=== PATIENT | female | born 1950 ===

== ENCOUNTER 2018-08-15 14:16 | Emergency (ER) | payer MEDICARE ==
[2018-08-15 14:43] VITALS: TEMP 97
--- NOTE | 2018-08-15 15:25 | ED PDOC ---
Lower Extremity Pain/Injury Time Seen by Provider: 08/15/18 15:12 Chief Complaint (Nursing): Lower Extremity Problem/Injury Chief Complaint (Provider): Lower Extremity Problem/Injury History Per: Patient History/Exam Limitations: no limitations Onset/Duration Of Symptoms: Days (x15) Current Symptoms Are (Timing): Still Present Additional Complaint(s): 68 y/o female presents to the ED for evaluation of a foot injury, onset 15 days ago. Patient reports of having twisted her foot, causing swelling. Patient notes of applying ice to the affected area and taking cataflam once daily. Patient reports swelling returns with walking. Patient states she was advised to come to the ER by her daughter to rule out a fracture thus prompting today's visit. PMD: none provided Past Medical History Reviewed: Historical Data, Nursing Documentation, Vital Signs Vital Signs: Last Vital Signs Temp 97 F L 08/15/18 14:42 Pulse 86 08/15/18 14:42 Resp 16 08/15/18 14:42 BP 173/95 H 08/15/18 14:42 Pulse Ox 99 08/15/18 14:42 - Medical History PMH: No Chronic Diseases - Surgical History Surgical History: No Surg Hx - Family History Family History: States: Unknown Family Hx - Home Medications Home Medications: Ambulatory Orders Medication Instructions Recorded Naproxen 375 mg PO Q8 PRN #21 tablet 08/15/18 - Allergies Allergies/Adverse Reactions: Allergies Allergy/AdvReac Type Severity Reaction Status Date / Time No Known Allergies Allergy Verified 08/15/18 14:40 Review of Systems ROS Statement: Except As Marked, All Systems Reviewed And Found Negative Musculoskeletal: Positive for: Foot Pain (left foot pain) Physical Exam - Reviewed Nursing Documentation Reviewed: Yes Vital Signs Reviewed: Yes - Physical Exam Appears: Positive for: No Acute Distress Extremity: Positive for: Tenderness (minimal tenderness of the foot. ), Swelling (moderate swelling to the left lateral malleolous) - ECG O2 Sat by Pulse Oximetry: 99 (RA) Pulse Ox Interpretation: Normal - Progress ED Course And Treament: xry of left ankle: fx of distal fibula healing d/w podiatry seen by resident and placed in CAM boot. Medical Decision Making Medical Decision Making: Time: 1512 Plan: -- Ankle Left 3 Views XR -- Foot Left 3 Views XR Scribe Attestation: Documented by Terra Garibay, acting as a scribe Yulissa Smith PA-C. Provider Scribe Attestation: All medical record entries made by the Scribe were at my direction and personally dictated by me. I have reviewed the chart and agree that the record accurately reflects my personal performance of the history, physical exam, medical decision making, and the department course for this patient. I have also personally directed, reviewed, and agree with the discharge instructions and disposition. Disposition - Clinical Impression Clinical Impression: Ankle fracture - Patient ED Disposition Is Patient to be Admitted: No - Disposition Referrals: Podiatry Clinic [Outside] Disposition: Routine/Home Disposition Time: 16:33 Condition: FAIR Prescriptions: Naproxen 375 mg PO Q8 PRN #21 tablet PRN Reason: Pain, Moderate (4-7) Instructions: Ankle Fracture (DC) Print Language: GREENLANDIC
--- NOTE | 2018-08-15 16:37 | CP.PCM.CON ---
History of Present Illness - History of Present Illness History of Present Illness: Podiatry consult note for Dr. Pickard, 68 y/o female presents to the ED for evaluation of a left foot injury, onset 15 days ago. Patient reports of having twisted her foot, causing swelling. Patient notes of applying ice to the affected area. Patient reports swelling returns with walking. Patient states she was advised to come to the ER by her daughter to rule out a fracture Review of Systems - Review of Systems All systems: reviewed and no additional remarkable complaints except Review of Systems: As per HPI Past Patient History - Past Social History Smoking Status: Never Smoked - PSYCHIATRIC Hx Substance Use: No Meds Home Medications: Home Medication List Medication Instructions Recorded Confirmed Type Naproxen 375 mg PO Q8 PRN #21 tablet 08/15/18 Rx Allergies/Adverse Reactions: Allergies Allergy/AdvReac Type Severity Reaction Status Date / Time No Known Allergies Allergy Verified 08/15/18 14:40 Physical Exam - Constitutional Appears: Well, Non-toxic, No Acute Distress - Head Exam Head Exam: ATRAUMATIC, NORMOCEPHALIC - Extremities Exam Additional comments: Left Lower Extremity Exam VASC: Dp and PT 2/4, CFT less thn 3 seconds, TG within normal limits, moderate swelling to the left lateral malleolous NEURO: grossly intact DERM: no wounds, no lesions, no erythema, no ecchymosis, no signs of infection, moderate swelling to lateral malleolar region ORTHO: Tenderness on palpation and with inversion, no pain with ankle range of motion, MSK 5/5 - Neurological Exam Neurological exam: Alert, Oriented x3 - Psychiatric Exam Psychiatric exam: Normal Affect, Normal Mood Results - Vital Signs Recent Vital Signs: Last Vital Signs Temp 97 F L 08/15/18 14:42 Pulse 86 08/15/18 14:42 Resp 16 08/15/18 14:42 BP 173/95 H 08/15/18 14:42 Pulse Ox 99 08/15/18 16:34 Assessment & Plan - Assessment and Plan (Free Text) Assessment: 68 y/o female seen and evaluated for left ankle pain Plan: Patient seen and evaluated Plan discussed with Dr. Neeraj HURD, afebrile Foot and Ankle X-rays: non-displaced fibular fracture, unicortical, likely several days old Patient explained likely etiology of pain Patient placed in a [place] compression, to remain NWB with use of crutches Patient taught how to use crutches Patient to ice/elevate extremity Patient will follow up within 1 week All patient questions answered to satisfaction Thank you for the consult - Date & Time Date: 08/16/18 Time: 10:24
[2018-08-15 16:41] VITALS: BP 145/85; PULSE 87; RESP 20; O2SAT 100
--- NOTE | 2018-08-16 09:55 | RAD ---
Date of service: 08/15/2018 PROCEDURE: Left Ankle Radiographs. HISTORY: ANKLE INJURY COMPARISON: None available. FINDINGS: BONES: Nondisplaced fracture distal left fibula. The finding is marked on the study for review. JOINTS: Normal. No osteoarthritis. Ankle mortise maintained. Talar dome intact SOFT TISSUES: Soft tissue swelling attests to the acuity of the fracture. OTHER FINDINGS: None. IMPRESSION: Nondisplaced distal left fibular fracture. The finding is marked on the study.
--- NOTE | 2018-08-16 13:11 | RAD ---
Date of service: 08/15/2018 PROCEDURE: Left Foot Radiographs. HISTORY: injury COMPARISON: None. FINDINGS: BONES: Small Achilles tendon insertion spur. No fracture. JOINTS: Normal. SOFT TISSUES: Normal. OTHER FINDINGS: None. IMPRESSION: No significant or acute findings to account for/ related to the clinical presentation. Additional benign and/or incidental findings described above.
== END 2018-08-15 16:41 | disposition home or self-care (01) ==
LOC: H.ER 14:16
DX: Z47.89 Encounter for other orthopedic aftercare (principal)

== ENCOUNTER 2018-10-07 18:43 | Emergency (ER) | payer MEDICARE ==
[2018-10-07 18:52] VITALS: RESP 18; O2SAT 100
[2018-10-07] MEDS ORDERED: Tetanus/Diphtheria Toxoids 0.5 ml Syringe IM ONE ×2 (19:26→20:00)
[2018-10-07] MEDS ORDERED: Povidone Iodine Topical 10% Sol TOP STA (19:26)
[2018-10-07] MEDS ORDERED: Lidocaine/Epi 1% 1:100000 20 ML IJ STA (19:26)
[2018-10-07] MEDS ORDERED: Lidocaine 1% w Epi 1:100,000 Inj ONE (19:35)
--- NOTE | 2018-10-07 21:40 | ED PDOC ---
HPI: Trauma/Fall - HPI Time Seen by Provider: 10/07/18 18:58 Chief Complaint (Nursing): Abnormal Skin Integrity Chief Complaint (Provider): fall with facial trauma History Per: Patient, Family (daughter) History/Exam Limitations: no limitations Additional Complaint(s): 68 y/o with hx of HTN who presents with facial trauma after fall down stairs this evening. Pt was walking down stairs of her daughter's apartment when she lost her footing and fell down stairs striking her face against concrete steps. Denies LOC, dizziness, N/V, visual blurriness. Does admit to [place] and pain on her forehead. She is not up to date on her tetanus vaccine. She has not taken any pain meds and does not take any anticoagulants. Past Medical History Reviewed: Historical Data, Nursing Documentation Vital Signs: Last Vital Signs Temp 98.8 F 10/07/18 18:48 Pulse 89 10/07/18 18:48 Resp 18 10/07/18 18:48 BP 192/97 H 10/07/18 18:48 Pulse Ox 100 10/07/18 18:48 - Medical History PMH: HTN, Hypothyroidism, Osteoporosis - Family History Family History: States: Unknown Family Hx - Home Medications Home Medications: Ambulatory Orders Medication Instructions Recorded Naproxen 375 mg PO Q8 PRN #21 tablet 08/15/18 - Allergies Allergies/Adverse Reactions: Allergies Allergy/AdvReac Type Severity Reaction Status Date / Time No Known Allergies Allergy Verified 08/15/18 14:40 Review of Systems Neurological: Positive for: Headache. Negative for: Weakness, Incoordination, Confusion, Altered Mental Status Physical Exam - Reviewed Nursing Documentation Reviewed: Yes Vital Signs Reviewed: Yes - Physical Exam Head Exam: Positive for: ATRAUMATIC Skin: Negative for: Normal Color (+ hematoma on forehead with associated excor iation and minimal bleeding. + 2 cm irregular laceration to bridge of nose (stellate) with mild bleeding. ) Eye Exam: Positive for: EOMI, PERRL, Periorbital swelling (medial Right eye swelling with some ecchymosis. ) ENT: Positive for: Other (approximately 1cm laceration on upper lip partially involving michelle border. Approx 0.5cm laceration on Right lower lip w/o michelle border involement. Punctate lesion on oral mucosa of lower lip. No loose teeth.) Neck: Positive for: Normal, Painless ROM, Supple Neurological/Psych: Positive for: Awake, Alert, Symmetric/Intact Strength (equal B/L), Oriented. Negative for: Lethargic, Motor/Sensory Deficits, Facial Droop - ECG O2 Sat by Pulse Oximetry: 100 Medical Decision Making Medical Decision Making: Tetanus vaccine Toradol 30mg IM x [address] w/o contrast laceration repair (see procedure note) Pt endorsed to [facility] Lemons pending Head and maxillofacial CT and disposition. Procedures - Laceration/Wound Repair Face Wound Length (cm): 1.5 (nasal bridge, 1cm upper lip, 0.5cm lower lip) Wound's Depth, Shape: superficial Wound Explored: no foreign body removed Irrigated w/ Saline (ccs): 150 Betadine Prep?: Yes Anesthesia: Lidocaine w/ Epi Volume Anesthetic (ccs): 4 Wound Debrided: minimal Wound Repaired With: Sutures Suture Size/Type: 6:0, proline Number of Sutures: 5 (2 non-absorbable to nasal bridge, 2 absorbable chromic gut to upper lip and 1 suture chromic gut absorbable to lower lip) Layer Closure?: No Wound Complexity: Simple Sterile Dressing Applied?: Yes Disposition - Clinical Impression Clinical Impression: Facial trauma, Lip laceration - Patient ED Disposition Is Patient to be Admitted: Transfer of Care ([facility] Lemons) - Disposition Disposition: Transfer of Care Disposition Time: 21:30 Condition: FAIR Forms: [facility] (Bulgarian)
--- NOTE | 2018-10-07 23:05 | ED PDOC ---
- ECG O2 Sat by Pulse Oximetry: 100 - Progress ED Course And Treament: Signed out to me pending CT report. 2300 CT head: no ICH as per [facility] report CT maxillofacial: no fx as per [facility] report Patient and family informed of results. Pt. offers no complaints. Gait steady, unassisted. Wound care instructions provided along with f/u instructions. Disposition - Clinical Impression Clinical Impression: Lip laceration, Head injury, Facial trauma - POA Present On Arrival: None - Disposition Disposition: Routine/Home Disposition Time: 23:04 Condition: STABLE Additional Instructions: SUTURE REMOVAL IN 7 DAYS RETURN TO ED IMMEDIATELY IF SYMPTOMS WORSEN ELYSSA GUTIERRES, thank you for letting us take care of you today. Your provider was Sugey Alvares MD and you were treated for FALL:FACE INJURY. The emergency medical care you received today was directed at your acute s ymptoms. If you were prescribed any medication, please fill it and take as directed. It may take several days for your symptoms to resolve. Return to the Emergency Department if your symptoms worsen, do not improve, or if you have any other problems. Please contact your doctor or call one of the physicians/clinics you have been referred to that are listed on the Patient Visit Information form that is included in your discharge packet. Bring any paperwork you were given at discharge with you along with any medications you are taking to your follow up visit. Our treatment cannot replace ongoing medical care by a primary care provider outside of the emergency department. Thank you for allowing the [facility] team to be part of your care today. If you had an X-Ray or CT scan: A Radiologist will review the ED reading if any change in treatment is needed we will contact you. If you had a blood, urine, or wound culture: It will take several days for the results, if any change in treatment is needed we will contact you. If you had an STI test: It will take 48 hours for the results. Please call after 1 week if you have not heard back. Instructions: Wound Care (DC), Closed Head Injury (DC), Laceration Repair With Stitches (DC) Forms: Location (Irish)
[2018-10-07 23:42] VITALS: BP 174/76; PULSE 83; TEMP 98.2
--- NOTE | 2018-10-08 11:16 | CT ---
Date of service: 10/07/2018 PROCEDURE: CT HEAD WITHOUT CONTRAST. HISTORY: fall with head trauma COMPARISON: None available. TECHNIQUE: Axial computed tomography images were obtained through the head/brain without intravenous contrast. Radiation dose: Total exam DLP = 1564.64 mGy-cm. This CT exam was performed using one or more of the following dose reduction techniques: Automated exposure control, adjustment of the mA and/or kV according to patient size, and/or use of iterative reconstruction technique. FINDINGS: HEMORRHAGE: No intracranial hemorrhage. BRAIN: No mass effect or edema. No significant cortical atrophy. No cortical effacement. VENTRICLES: Unremarkable. No hydrocephalus. CALVARIUM: No fracture is identified. Moderate sized area of frontal scalp and fronto nasal hematoma is noted. PARANASAL SINUSES: Please see CT facial bone exam of same day MASTOID AIR CELLS: Please see CT facial bone exam of same day OTHER FINDINGS: None. IMPRESSION: No evidence of intracranial hemorrhage. Frontal scalp hematoma. No appreciable fracture.
--- NOTE | 2018-10-08 11:18 | CT ---
Date of service: 10/07/2018 PROCEDURE: CT MAXILLOFACIAL BONES WITHOUT CONTRAST HISTORY: fall with facial trauma COMPARISON: None available. TECHNIQUE: Contiguous axial CT images of the maxillofacial bones were obtained. Coronal and sagittal reformats were generated. Radiation dose: Total exam DLP = 0.0 mGy-cm. This CT exam was performed using one or more of the following dose reduction techniques: Automated exposure control, adjustment of the mA and/or kV according to patient size, and/or use of iterative reconstruction technique. FINDINGS: NASAL BONES: Unremarkable. ORBITS: Unremarkable. There is evidence of moderate soft tissue swelling overlying the frontal bone and frontal nasal region. PARANASAL SINUSES/ MASTOIDS: Clear. MAXILLA: Unremarkable. MANDIBLE/ TEMPOROMANDIBULAR JOINTS: Unremarkable. SKULL BASE: Unremarkable. TEMPORAL BONES: Mastoid air cells are under developed. Middle ear cavities are unremarkable. OTHER FINDINGS: Degenerative disc disease is seen in the cervical spine. IMPRESSION: No appreciable fracture. No evidence of sinusitis. Moderate soft tissue swelling.
== END 2018-10-07 23:30 | disposition home or self-care (01) ==
LOC: H.ER 18:43
DX: S09.93XA Unspecified injury of face, initial encounter (principal); W10.9XXA Fall (on) (from) unspecified stairs and steps, initial encounter; I10 Essential (primary) hypertension; S01.511A Laceration without foreign body of lip, initial encounter; S00.03XA Contusion of scalp, initial encounter; M81.0 Age-related osteoporosis without current pathological fracture; Z23 Encounter for immunization
CPT/HCPCS: 12011; 70450; 70486; 90471; 90714; 96372; 99283; J1885

== ENCOUNTER 2018-11-03 08:26 | Emergency (ER) | payer MEDICARE ==
[2018-11-03 08:33] VITALS: BMI 28.3
[2018-11-03 08:35] VITALS: RESP 16; O2SAT 100
--- NOTE | 2018-11-03 09:32 | ED PDOC ---
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 Patient states she sustained a head injury status post fall then placed with multiple stitches on 10/07/18 in ED. She reports pain and swelling improved but has not been able to return sooner to remove stitches due to transportation issues. Patient complains of itchiness to the the stitches area but denies physical pain, visual changes, numbness, tingling, fever, or chills. Past Medical History Reviewed: Historical Data, Nursing Documentation, Vital Signs Vital Signs: Last Vital Signs Temp 98.3 F 11/03/18 08:33 Pulse 79 11/03/18 08:33 Resp 16 11/03/18 08:33 BP 169/80 H 11/03/18 08:33 Pulse Ox 100 11/03/18 08:33 Primary Care Provider: FAMILY PROVIDER,NO - Medical History PMH: HTN, Hypothyroidism, Osteoporosis - Family History Family History: States: Unknown Family Hx - Home Medications Home Medications: Ambulatory Orders Medication Instructions Recorded Naproxen 375 mg PO Q8 PRN #21 tablet 08/15/18 - Allergies Allergies/Adverse Reactions: Allergies Allergy/AdvReac Type Severity Reaction Status Date / Time No Known Allergies Allergy Verified 08/15/18 14:40 Review of Systems ROS Statement: Except As Marked, All Systems Reviewed And Found Negative Constitutional: Negative for: Fever, Chills Eyes: Negative for: Pain, Vision Change ENT: Positive for: Other (2 stitches on top of nasal bridge with itchiness). Negative for: Nose Pain Neurological: Negative for: Numbness (or tingling) Physical Exam - Reviewed Nursing Documentation Reviewed: Yes Vital Signs Reviewed: Yes - Physical Exam Appears: Positive for: Non-toxic, No Acute Distress Head Exam: Negative for: NORMAL INSPECTION Skin: Positive for: Normal Color Eye Exam: Positive for: Normal appearance, EOMI, PERRL. Negative for: Periorbital swelling, Periorbital tenderness ENT: Positive for: Other ([address] on top of nasal bridge without erythema or discharge). Negative for: Sinus Pain/Drainage (frontal or nasal bridge) Neck: Positive for: Normal Cardiovascular/Chest: Positive for: Regular Rate, Rhythm Respiratory: Positive for: Normal Breath Sounds. Negative for: Respiratory Distress Neurological/Psych: Positive for: Awake, Alert, Normal Tone, Oriented, reading professor II- XII (grossly intact). Negative for: Motor/Sensory Deficits - ECG O2 Sat by Pulse Oximetry: 100 (RA) Pulse Ox Interpretation: Normal - Progress ED Course And Treament: 2 stitches removed with no incident. 1124: Stable. AAOx3. Tolerated well. Fu with pcp. No pain. Medical Decision Making Medical Decision Making: Time: 854 Initial Plan: suture removal Scribe Attestation: Documented by Veronica Bailon, acting as a scribe for Dinh Trent MD. Provider Scribe Attestation: All medical record entries made by the Scribe were at my direction and personally dictated by me. I have reviewed the chart and agree that the record accurately reflects my personal performance of the history, physical exam, medical decision making, and the department course for this patient. I have also personally directed, reviewed, and agree with the discharge instructions and disposition. Disposition - Clinical Impression Clinical Impression: Removal of suture - Patient ED Disposition Is Patient to be Admitted: No Counseled Patient/Family Regarding: Diagnosis, Need For Followup - Disposition Disposition: Routine/Home Disposition Time: 08:45 Condition: STABLE Instructions: Stitches Removal Print Language: ALBANIAN
[2018-11-03 12:54] VITALS: BP 151/78; PULSE 81; TEMP 98.4
== END 2018-11-03 11:34 | disposition home or self-care (01) ==
LOC: H.ER 08:26
DX: Z48.02 Encounter for removal of sutures (principal)